=== PATIENT | female | born 1935 | race Caucasian/White ===

== ENCOUNTER 2021-02-05 15:33 | Inpatient (IN) | payer OTHER ==
[~2021-02-05] VITALS: Ht 162.6 cm; Wt 80.3 kg
--- NOTE | 2021-02-05 15:33 | NUR ---
PT [id number] [facility] C/O R HIP PAIN S/P GLF WHILE WALKING THE DOG. PT IS AAOX4, NOT IN RESPIRATORY DISTRESS, V/S STABLE, KEPT RESTED AND COMFORTABLE. WILL CONTINUE TO MONITOR.
--- NOTE | 2021-02-05 16:11 | NUR ---
SEEN AND EXAMINED BY .
[2021-02-05] MEDS ORDERED: ONDANSETRON HCL/PF 4 MG/2 ML VIAL ONE (16:15)
[2021-02-05] MEDS ORDERED: MORPHINE SULFATE INJ 2 MG/ML DISP.SYRIN ONE ×2 (16:15→19:08)
[2021-02-05] MEDS ORDERED: ONDANSETRON HCL/PF - ER 4 MG/2 ML VIAL IV ONE (16:30)
[2021-02-05] MEDS ORDERED: MORPHINE SULFATE INJ 2 MG/ML DISP.SYRIN IV ONE ×2 (16:30→19:00)
[2021-02-05 16:32] LABS: BASOPHILS # (AUTO) 0.3 K/uL (0.0-0.2); BASOPHILS % (AUTO) 2.7 % (0.0-2.0); EOSINOPHILS % (AUTO) 3.5 % (0.0-6.0); HEMATOCRIT 45 % (33-45); HEMOGLOBIN 14.5 g/dL (11.5-14.8); LYMPHOCYTES % (AUTO) 8.6 % (20.0-44.0); MEAN CORPUSCULAR HGB CONC 33 g/dl (31.0-36.0); MEAN CORPUSCULAR VOLUME 91 fL (82-100); MONOCYTES # (AUTO) 0.5 K/uL (0.1-1.30); MONOCYTES % (AUTO) 4.8 % (2.0-12.0); NEUTROPHILS # (AUTO) 9.1 K/uL (1.8-8.9); NEUTROPHILS % (AUTO) 80.4 % (43.0-81.0); PLATELET COUNT (AUTO) 269 K/uL (150-450); RED BLOOD CELL COUNT(AUTO) 4.91 MIL/uL (4.0-5.2); WHITE BLOOD COUNT (AUTO) 11.3 K/uL (4.3-11.0)
[2021-02-05 16:49] LABS: CALCIUM, SERUM 8.9 mg/dL (8.5-10.1); CREATININE 1.1 mg/dL (0.6-1.3); POTASSIUM 4.8 mmol/L (3.5-5.1)
--- NOTE | 2021-02-05 17:15 | NUR ---
PT IS WHEELED TO CT SCAN VIA [facility].
--- NOTE | 2021-02-05 18:04 | NUR ---
PT DAUGHTER ONDINA [phone]
--- NOTE | 2021-02-05 18:07 | NUR ---
CALLED ANDREA [phone] FOR READ. FEW MORE MINS.
--- NOTE | 2021-02-05 18:35 | NUR ---
CONTACTED ORTHO DR. FERNÁNDEZ TO CALL US BACK.
--- NOTE | 2021-02-05 18:52 | NUR ---
MOVE SHEET SUBMITTED.
--- NOTE | 2021-02-05 22:32 | NUR ---
m/s 326-1
--- NOTE | 2021-02-05 22:53 | NUR ---
REPORT GIVEN TO GOLD RN FOR GERHARD
[2021-02-05 23:00] VITALS: BP 163/86
--- NOTE | 2021-02-05 23:00 | NUR ---
MS RN ADMITTING NOTE PT TRANSPORTED BY [facility] TO UNIT FROM ER AT THIS TIME. RECEIVED REPORT FROM TRAE ENGEL @ED, A/OX 4. PT ABLE TO COMMUNICATE NEEDS. NO SOB NOTED, NO C/O PAIN AT THIS TIME, NO S/S OF ANY APPARENT DISTRESS NOTED. RESPIRATIONS EVEN AND UNLABORED, HYPERACTIVE BOWEL SOUNDS AUSCULTATED THROUGHOUT, ABDOMEN IS NON DISTENDED. SKIN IS INTACT, WARM TO TOUCH. CAPILLARY REFILL <3 SECONDS, PULSES PRESENT BILATERALLY, GOOD CIRCULATION NOTED. IV ACCESS NOTED IN L HAND G#20, INTACT, PATENT AND FLUSHING WELL. BELONGINGS NOTED AND KEPT AT BEDSIDE PER PT REQUEST. ASPIRATION AND SAFETY PRECAUTIONS IN PLACE AND MAINTAINED AT ALL TIMES. BED IN LOWEST LOCKED POSITION, SIDE RAILS UP X2, TABLE AND CALL LIGHT WITHIN REACH. WILL CONTINUE PLAN OF CARE.
[2021-02-06] VITALS: BP 163/86
[2021-02-06] MEDS ORDERED: ACETAMINOPHEN 325 MG TABLET PO PRN (03:00)
[2021-02-06] MEDS ORDERED: ZOLPIDEM TARTRATE 5 MG TABLET PO PRN (03:00)
[2021-02-06] MEDS ORDERED: Z GUARD REMEDY 2 OZ OINT TP PRN (03:00)
[2021-02-06] MEDS ORDERED: MAGNESIUM HYDROXIDE 30 ML UDC PO PRN (03:00)
[2021-02-06] MEDS ORDERED: ONDANSETRON HCL/PF 4 MG/2 ML VIAL IVP PRN (03:00)
[2021-02-06] MEDS: ENOXAPARIN SODIUM 40 MG/0.4 ML DISP.SYRIN SQ SCH (03:34)
[2021-02-06] MEDS: MORPHINE SULFATE INJ 2 MG/ML DISP.SYRIN IV PRN ×3 (03:36→21:19)
--- NOTE | 2021-02-06 03:36 | NUR ---
PT C/O PAIN OF 9/10 ON HER RIGHT HIP, VS WNL. MORPHINE 2MG/ML IV Q4HR PRN ADMINISTERED PER PT REQUEST. WILL CONTINUE TO MONITOR
[2021-02-06] MEDS: IV NS 0.9% 1,000 ML IV PRN ×2 (04:23→16:48)
[2021-02-06] MEDS: hydrALAZINE HCL IV 20 MG VIAL IV PRN (04:34)
--- NOTE | 2021-02-06 06:00 | NUR ---
MS RN CLOSING NOTE PT IS IN BED AWAKE. PT IS STABLE ON 2L NC , NO SOB NOTED. NO S/S OF RESPIRATORY DISTRESS. IV ACCESS IS INTACT, PATENT, AND FLUSHING WELL. . ALL NEEDS HAVE BEEN MET. ALL CARE, NEEDS, MEDICATIONS, AND TREATMENT ADMINISTERED ANTICIPATED PER ORDER. SAFETY, SEIZURE, AND ASPIRATION PRECAUTIONS MAINTAINED AT ALL TIMES. BED IN LOWEST LOCKED POSITION, HOB ELEVATED, SIDE RAILS UPX2. CALL LIGHT AND TABLE WITHIN REACH. WILL ENDORSE TO ONCOMING NURSE FOR GERHARD.
--- NOTE | 2021-02-06 07:22 | NUR ---
MS RN OPENING NOTES RECEIVED PATIENT RESTING IN BED. PATIENT IS A/O X4. PATIENT IS BREATHING EVENLY AND NONLABORED ON 2L VIA NASAL CANNULA. NO SIGNS OF DISTRESS NOTED. PATIENT DOES NOT COMPLAIN OF PAIN AT THIS TIME. PATIENT HAS IV ACCESS ON L HAND # 20 GAUGE RUNNING NS @ 60ML/HR, PATENT AND INTACT. SAFETY MEASURES ARE IN PLACE BED LOW, LOCKED CALL LIGHT WITHIN REACH. WILL CONTINUE TO MONITOR
[2021-02-06 09:25] VITALS: BP 158/87
--- NOTE | 2021-02-06 11:18 | NUR ---
RN NOTE PT C/O PAIN OF 9/10 ON HER RIGHT HIP, PATIENT ASKED FOR PRN PAIN MEDICATION. VS WNL. MORPHINE 2MG/ML IV Q4HR PRN ADMINISTERED PER ORDER. WILL CONTINUE TO MONITOR
[2021-02-06 16:16] VITALS: BP 162/62
--- NOTE | 2021-02-06 18:31 | NUR ---
MS RN CLOSING NOTE PT IS IN BED AWAKE. PATIENT IS A/O X4. PATIENT IS BREATHING EVENLY AND NONLABORED. PT IS STABLE ON 2L NC , NO SOB NOTED. NO S/S OF RESPIRATORY DISTRESS. IV ACCESS ON L HAND # 20 GAUGE IS INTACT, PATENT, AND FLUSHING WELL RUNNING NS @ 60 ML/HR. ALL NEEDS HAVE BEEN MET. ALL CARE, NEEDS, MEDICATIONS, AND TREATMENT ADMINISTERED. SAFETY, SEIZURE, AND ASPIRATION PRECAUTIONS MAINTAINED AT ALL TIMES. BED IN LOWEST LOCKED POSITION, HOB ELEVATED, SIDE RAILS UPX2. CALL LIGHT AND TABLE WITHIN REACH. WILL ENDORSE TO ONCOMING NURSE
--- NOTE | 2021-02-06 19:00 | NUR ---
RN NOTE RECEIVED PATIENT IN BED, AO X 4, IN NO S/SX OF ACUTE DISTRESS AT THIS TIME. BREATHING EVEN AND UNLABORED, SATURATION AT 95% ON , SR ON THE MONITOR, HR IS 98. NOTED IV SITE AT L HAND 20G, PATENT AND FLUSHING WELL, NO S/S OF INFECTION OR INFILTRATION, WITH IV FLUID OF NS INFUSING AT 60 ML/HR. MEDEROS CATHETER CONNECTED TO URINE BAG IN PLACE, DRAINING TO A CLEAR, YELLOW OUTPUT. BLE KEPT ELEVATED. SAFETY MEASURES IMPLEMENTED. PATIENT BED ALARM IS ON. HEAD OF BED ELEVATED. BED IS LOCKED, IN LOWEST POSITION AND SIDE RAILS UP. CALL LIGHT WITHIN REACH OF THE PATIENT. WILL CONTINUE TO MONITOR AND REASSESS FOR ANY CHANGES. Addendum: 02/07/21 at 0300 by BARRY MARTINEZ RN SATURATION AT 95% ON 2LPM VIA [place]
[2021-02-06 20:00] VITALS: BP 138/65
[2021-02-07] MEDS: ENOXAPARIN SODIUM 40 MG/0.4 ML DISP.SYRIN SQ SCH (02:29)
[2021-02-07] MEDS: MORPHINE SULFATE INJ 2 MG/ML DISP.SYRIN IV PRN ×4 (04:56→23:45)
[2021-02-07 06:51] LABS: BASOPHILS # (AUTO) 0.1 K/uL (0.0-0.2); BASOPHILS % (AUTO) 0.7 % (0.0-2.0); EOSINOPHILS % (AUTO) 2.3 % (0.0-6.0); HEMATOCRIT 41 % (33-45); HEMOGLOBIN 13.5 g/dL (11.5-14.8); LYMPHOCYTES # (AUTO) 1.8 K/uL (0.8-4.8); LYMPHOCYTES % (AUTO) 12.3 % (20.0-44.0); MEAN CORPUSCULAR HGB CONC 33 g/dl (31.0-36.0); MEAN CORPUSCULAR VOLUME 91 fL (82-100); MONOCYTES # (AUTO) 1.1 K/uL (0.1-1.30); MONOCYTES % (AUTO) 7.4 % (2.0-12.0); NEUTROPHILS # (AUTO) 11.2 K/uL (1.8-8.9); NEUTROPHILS % (AUTO) 77.3 % (43.0-81.0); PLATELET COUNT (AUTO) 196 K/uL (150-450); RED BLOOD CELL COUNT(AUTO) 4.53 MIL/uL (4.0-5.2); WHITE BLOOD COUNT (AUTO) 14.5 K/uL (4.3-11.0)
[2021-02-07 07:16] LABS: BILIRUBIN,TOTAL 0.8 mg/dL (0.2-1.0); CALCIUM, SERUM 8.1 mg/dL (8.5-10.1); MAGNESIUM 2.2 mg/dL (1.8-2.4); PHOSPHORUS 2.3 mg/dL (2.5-4.9)
--- NOTE | 2021-02-07 07:53 | NUR ---
RN OPENING NOTE PT AWAKE IN BED RESTING. ON 2L NC WITH SOB AND NO RESPIRATORY DISTRESS PRESENT. A/O X4 AND [place] SPEAKING. NO COMPLAINT OF PAIN OR NAUSEA PRESENT. NO FUR REPAIR INSPECTOR PRESENT. F/C PRESENT AND DRAINING WELL. ON BEDREST. SKIN IS INTACT. IV PRESENT ON L HAND 20G AND FLUSHES WELL. LABS AND ORDERS REVIEWED. SAFETY MEASURES IN PLACE. SIDE RAILS RAISED. BED LOWERED. CALL LIGHT WITHIN REACH. WILL CONTINUE TO MONITOR.
[2021-02-07 08:00] VITALS: BP 176/81
[2021-02-07] MEDS: HYDROCODONE/APAP 5/325MG TABLET PO PRN ×2 (12:11→21:44)
[2021-02-07] MEDS ORDERED: K PHOS NEUTRAL 250 MG TABLET PO ONE (15:30)
[2021-02-07 16:00] VITALS: BP 155/70
--- NOTE | 2021-02-07 18:27 | NUR ---
RN CLOSING NOTE PT AWAKE IN BED RESTING. ON 2L NC WITH SOB AND NO RESPIRATORY DISTRESS PRESENT. A/O X4 AND FAROESE SPEAKING. NO COMPLAINT OF PAIN OR NAUSEA PRESENT. NO OLIVER FILTER OPERATOR PRESENT. F/C PRESENT AND DRAINING WELL. ON BEDREST. SKIN IS INTACT. IV PRESENT ON L HAND 20G AND FLUSHES WELL. ROUTINE MEDS GIVEN. LABS AND ORDERS REVIEWED. SAFETY MEASURES IN PLACE. SIDE RAILS RAISED. BED LOWERED. CALL LIGHT WITHIN REACH. REPORT TO BE GIVEN TO NIGHT NURSE FOR GERHARD.
--- NOTE | 2021-02-07 19:12 | NUR ---
CONTINUITY OF CARE Patient in bed, supine position, reports no pain when not moving of touching her lower legs. Ongoing IVF. Chawla cath in place. Fall precaution maintained.
--- NOTE | 2021-02-07 19:34 | NUR ---
PAIN Patient in bed, unable to reposition in bed, limited movement BLE d/t hip and lower back pain. Pain 9/10 per patient, sharp and aching. IV morphine given, will reassess.
[2021-02-07 21:30] VITALS: BP 96/67
--- NOTE | 2021-02-07 21:44 | NUR ---
PAIN Patient in bed, refused to be turned and repositioned in bed, education given on possible skin pressure sore when not turning, declined education. Limited movement d/t omar lower ext d/t pain. Given [employer], will reassess.
--- NOTE | 2021-02-07 23:45 | NUR ---
PAIN Patient still refused to be turned and repositioned, reports no pain when not move or turned. Given IV morphine prior care, patient agreed.
[2021-02-08] MEDS: ENOXAPARIN SODIUM 40 MG/0.4 ML DISP.SYRIN SQ SCH (03:21)
--- NOTE | 2021-02-08 03:25 | NUR ---
ANTICOAGULANT H/H 13.5 Plt 196 No active bleeding. Given Lovenox injection co-signed by TRAE Malone
[2021-02-08] MEDS: IV NS 0.9% 1,000 ML IV PRN ×2 (03:28→23:33)
[2021-02-08] MEDS: HYDROCODONE/APAP 5/325MG TABLET PO PRN ×2 (03:30→23:45)
--- NOTE | 2021-02-08 03:32 | NUR ---
PAIN Patient in bed, c/o hip/lower back pain. Given [place] will reassess. Refused turning and repositioning.
--- NOTE | 2021-02-08 06:31 | NUR ---
END OF SHIFT REPORT Patient is A/O x3. On supplemental Oxygen via NC. Ongoing IVF. Right hip/lower back pain improved with Morphine and [place]. Patient uncooperative with turning, despite education. Skin precaution explained, offload heels at all times. No surgical intervention at this time per Ortho. NWB RLE. Plan for PT. Will endorse to oncoming RN to medicate patient for prior PT. Fall precaution maintained.
[2021-02-08 07:17] LABS: BASOPHILS # (AUTO) 0.1 K/uL (0.0-0.2); BASOPHILS % (AUTO) 0.6 % (0.0-2.0); EOSINOPHILS % (AUTO) 4.8 % (0.0-6.0); HEMATOCRIT 39 % (33-45); HEMOGLOBIN 12.9 g/dL (11.5-14.8); LYMPHOCYTES # (AUTO) 2.1 K/uL (0.8-4.8); LYMPHOCYTES % (AUTO) 17.7 % (20.0-44.0); MEAN CORPUSCULAR HGB CONC 33 g/dl (31.0-36.0); MEAN CORPUSCULAR VOLUME 90 fL (82-100); MONOCYTES # (AUTO) 1.1 K/uL (0.1-1.30); MONOCYTES % (AUTO) 9.7 % (2.0-12.0); NEUTROPHILS % (AUTO) 67.2 % (43.0-81.0); PLATELET COUNT (AUTO) 201 K/uL (150-450); RED BLOOD CELL COUNT(AUTO) 4.29 MIL/uL (4.0-5.2); WHITE BLOOD COUNT (AUTO) 11.8 K/uL (4.3-11.0)
[2021-02-08 07:43] LABS: ALBUMIN 2.6 g/dL (3.4-5.0); BILIRUBIN,TOTAL 0.7 mg/dL (0.2-1.0); CREATININE 0.9 mg/dL (0.6-1.3); MAGNESIUM 2.1 mg/dL (1.8-2.4); PHOSPHORUS 2.3 mg/dL (2.5-4.9); POTASSIUM 3.8 mmol/L (3.5-5.1); TOTAL PROTEIN, SERUM 6.5 g/dL (6.4-8.2)
--- NOTE | 2021-02-08 07:49 | NUR ---
RN OPENING NOTE PT AWAKE IN BED RESTING. ON 2L NC WITH SOB AND NO RESPIRATORY DISTRESS PRESENT. A/O X4 AND TURKISH SPEAKING. COMPLAINT OF PAIN WITH EPISODES OF CRYING. NO COMPLAINT OF NAUSEA PRESENT. NO SCREWDOWN OPERATOR PRESENT. F/C PRESENT AND DRAINING WELL. ON BEDREST. WOUND PRESENT ON R HEEL, WOUND PICTURES TAKEN AND WOUND CONSULT ORDERED. IV PRESENT ON L HAND 20G AND FLUSHES WELL. LABS AND ORDERS REVIEWED. SAFETY MEASURES IN PLACE. SIDE RAILS RAISED. BED LOWERED. CALL LIGHT WITHIN REACH. WILL CONTINUE TO MONITOR.
--- NOTE | 2021-02-08 07:50 | NUR ---
RN NOTE PT VERBALIZED THAT CURRENT DOSAGE OF MORPHINE IS INSUFFICIENT, MD CONTACTED. AWAITING ORDERS.
[2021-02-08 08:00] VITALS: BP 162/75
[2021-02-08] MEDS: MORPHINE SULFATE INJ 2 MG/ML DISP.SYRIN IV PRN ×2 (08:50→12:29)
--- NOTE | 2021-02-08 09:48 | NUR ---
WOUND CARE CONSULT: LIMITED ASSESSMENT DUE TO PT REFUSED TO TURN FOR FULL SKIN ASSESSMENT OF BACK AND BUTTOCKS. PT NOTED TO HAVE SKIN TEARS TO RT ARM, PRESENT ON ADMISSION. RECOMMENDATIONS MADE FOR SKIN PROTECTION AND WOUND CARE. DISCUSSED WITH NURSING STAFF. IN AGREEMENT WITH PLAN OF CARE. PT IS ON DAHLIA ISOFLEX LOW AIRLOSS BED. MD IN AGREEMENT WITH PLAN OF CARE.
[2021-02-08] MEDS ORDERED: K PHOS NEUTRAL 250 MG TABLET PO ONE (10:00)
[2021-02-08] MEDS ORDERED: MORPHINE SULFATE INJ 2 MG/ML DISP.SYRIN IV PRN (11:00)
--- NOTE | 2021-02-08 15:00 | NUR ---
RN NOTE PT HAS REFUSED ALL TURNING AND REPOSITIONING AND PT. EDUCATED PT ON RISKS AND BENEFITS OF REFUSING MOVEMENT AND REPOSITIONING. WILL CONTINUE TO MONITOR.
[2021-02-08 16:00] VITALS: BP 153/64
[2021-02-08] MEDS: GLUCERNA SHAKE 237 ML CAN PO SCH (17:56)
--- NOTE | 2021-02-08 17:57 | NUR ---
RN NOTE GLUCERNA ADMINISTERED TO PT WITH DINNER TRAY. PT THREW AWAY BOTTLE BEFORE SCANNED BY RN. PT IN STABLE CONDITION. WILL CONTINUE TO MONITOR.
--- NOTE | 2021-02-08 18:43 | NUR ---
RN CLOSING NOTE PT AWAKE IN BED RESTING. ON 2L NC WITH SOB AND NO RESPIRATORY DISTRESS PRESENT. A/O X4 AND ANGOLAN SPEAKING.NO COMPLAINT OF PAIN PRESENT. NO COMPLAINT OF NAUSEA PRESENT. NO CHEMIST ASSISTANT PRESENT. F/C PRESENT AND DRAINING WELL. ON BEDREST. WOUND PRESENT ON R HEEL, WOUND PICTURES TAKEN AND WOUND CONSULT ORDERED. IV PRESENT ON L HAND 20G AND FLUSHES WELL. LABS AND ORDERS REVIEWED. ROUTINE MEDS GIVEN. SAFETY MEASURES IN PLACE. SIDE RAILS RAISED. BED LOWERED. CALL LIGHT WITHIN REACH. WILL GIVE REPORT TO NIGHT NURSE FOR GERHARD.
--- NOTE | 2021-02-08 19:21 | NUR ---
MS RN NOTES PT AWAKE IN BED RESTING. ON 2L NC WITH SOB AND NO RESPIRATORY DISTRESS PRESENT. A/O X4 NO COMPLAINT OF PAIN PRESENT AT THIS TIME. . F/C NOTED AND DRAINING CLEAR YELLOW URINE WELL. ON BEDREST. WOUND NOTED ON R HEEL. IV PRESENT ON L HAND 20G AND FLUSHES WELL. SAFETY MEASURES IN PLACE. SIDE RAILS RAISED. BED LOWERED. CALL LIGHT WITHIN REACH. WILL CONTINUE TO MONITOR.
[2021-02-08 20:00] VITALS: BP 148/67
[2021-02-08 20:35] VITALS: BP 148/67
--- NOTE | 2021-02-08 23:48 | NUR ---
MS RN NOTES PT REPORTED 6/10 HIP PAIN ON A NUMERIC SCALE PRN NORCO GIVEN AND TOLERATED WELL.WILL CONTINUE TO MONITOR.
[2021-02-09] MEDS: ENOXAPARIN SODIUM 40 MG/0.4 ML DISP.SYRIN SQ SCH (02:13)
--- NOTE | 2021-02-09 06:30 | NUR ---
MS RN NOTES PT AWAKE IN BED RESTING. ON 2L NC WITH SOB AND NO RESPIRATORY DISTRESS PRESENT. A/O X4 NO COMPLAINT OF PAIN PRESENT AT THIS TIME. . F/C NOTED AND DRAINING CLEAR YELLOW URINE WELL. ON BEDREST.. IV PRESENT ON L HAND 20G AND FLUSHES WELL. PT REFUSED TO BE REPOSITIONED ALL NIGHT EVEN WITH PREMEDICATION PT STILL REFUSED X3 RISK AND BENEFITS EXPLAINED X3.SAFETY MEASURES IN PLACE. SIDE RAILS RAISED. BED LOWERED. CALL LIGHT WITHIN REACH. ALL DUE MEDS GIVEN AND TOLERATED WELL. ALL NURSING NEEDS MET .WILL ENDORSE CARE TO DAY SHIFT NURSE.
--- NOTE | 2021-02-09 07:31 | NUR ---
MS RN OPENING NOTES PATIENT AWAKE IN BED RESTING. ON 2L NC WITH NO SOB AND NO RESPIRATORY DISTRESS PRESENT. A/O X4. NO PAIN AT THIS TIME. F/C NOTED AND DRAINING CLEAR YELLOW URINE. IV PRESENT ON L HAND 20G AND PATENT AND INTACT. SIDE RAILS RAISED. BED LOWERED. CALL LIGHT WITHIN REACH. WILL CONTINUE TO MONITOR.
[2021-02-09 08:00] VITALS: BP 190/76
[2021-02-09] MEDS: GLUCERNA SHAKE 237 ML CAN PO SCH ×2 (08:38→16:07)
[2021-02-09] MEDS: HYDROCODONE/APAP 5/325MG TABLET PO PRN (09:25)
[2021-02-09] MEDS ORDERED: HYDROMORPHONE INJ 2 MG/ML DISP.SYRIN IV PRN (10:30)
[2021-02-09] MEDS: DOCUSATE SODIUM 250 MG CAPSULE PO SCH ×2 (11:18→16:07)
[2021-02-09 16:00] VITALS: BP 181/72
[2021-02-09] MEDS: IV NS 0.9% 1,000 ML IV PRN (16:32)
--- NOTE | 2021-02-09 18:03 | NUR ---
MS RN CLOSING NOTES PATIENT AWAKE IN BED RESTING. ON 2L NC WITH NO SOB AND NO RESPIRATORY DISTRESS PRESENT. A/O X4. NO PAIN AT THIS TIME. F/C NOTED AND DRAINING CLEAR YELLOW URINE. IV PRESENT ON L HAND 20G. IV IS PATENT AND INTACT. NORMAL SALINE RUNNING AT 60 ML/HOUR. SIDE RAILS RAISED. BED LOWERED. CALL LIGHT WITHIN REACH. WILL ENDORSE TO ONCOMING NURSE.
--- NOTE | 2021-02-09 19:00 | NUR ---
MS RN OPENING NOTES RECEIVE PT AWAKE IN BED AT THIS TIME. AOX 4. ABLE TO VERBALIZE NEEDS. NO S/O OF ANY ACUTE DISTRESS NOTED, DENIES PAIN AT THIS TIME. PT ON 2L OXYGEN VIA NC. IV ACCESS IN L HAND GAUGE 20 INTACT AND PATENT AND FLUSHING WELL . NS INFUSING NS AT 60ML/HR. SAFETY PRECAUTIONS IN PLACE AND MAINTAINED AT ALL TIMES. BED IN LOWEST LOCKED POSITION, HOB ELEVATED, SIDE RAILS UP X2, CALL LIGHT AND TABLE WITHIN REACH. WILL CONTINUE TO MONITOR
[2021-02-09 20:00] VITALS: BP 167/71
[2021-02-09] MEDS: hydrALAZINE HCL IV 20 MG VIAL IV PRN (20:34)
--- NOTE | 2021-02-09 20:34 | NUR ---
PATIENTS BP 167/71, HYDRALAZINE HCL 10MG (0.5ML) IV Q8HR PRN ADMINISTERED PER ORDER TO KEEP SBP <140.
[2021-02-10] MEDS: ENOXAPARIN SODIUM 40 MG/0.4 ML DISP.SYRIN SQ SCH (03:32)
--- NOTE | 2021-02-10 06:00 | NUR ---
MS RN CLOSING NOTE PT AWAKE AND RESTING IN BED COMFORTABLY AT THIS TIME. REMAINED STABLE THROUGHOUT SHIFT. ALL NEEDS, MEDICATIONS, CARE, AND PAIN CONTROL ADMINISTERED ANTICIPATED PER ORDER. PT REFUSED TO BE REPOSITIONED Q2HR AND PRN. IV ACCESS INTACT, PATENT AND FLUSHING. MEDEROS CATHETER IN PLACE AND DRAINING CLEAR, YELLOW URINE. SAFETY PRECAUTIONS IN LOWEST LOCKED POSITION, HOB ELEVATED, SIDE RAILS UP X2. CALL LIGHT AND TABLE WITHIN REACH. WILL ENDORSE TO DAY SHIFT NURSE FOR GERHARD.
--- NOTE | 2021-02-10 07:20 | NUR ---
MS RN OPENING NOTE RECEIVED PATIENT IN BED. ON 2L NC WITH NO SOB AND NO RESPIRATORY DISTRESS PRESENT. A/O X4. NO PAIN AT THIS TIME. MEDEROS CATHETER IN PLACE DRAINING YELLOW URINE. IV ACCESS ON L HAND 20 G, INTACT AND PATENT. SAFETY MEASURES MAINTAINED. BED IN LOWEST POSITION. BRAKES LOCKED. SIDE RAILS UP X2. CALL LIGHT WITHIN REACH. WILL CONTINUE PLAN OF CARE.
[2021-02-10 08:16] VITALS: BP 181/102
[2021-02-10] MEDS: hydrALAZINE HCL IV 20 MG VIAL IV PRN (08:16)
[2021-02-10] MEDS: DOCUSATE SODIUM 250 MG CAPSULE PO SCH (08:16)
--- NOTE | 2021-02-10 08:16 | NUR ---
RN NOTE BP 181/102 ID 84. HYDRALAZINE 0.5 ML PRN GIVEN. WILL CONTINUE TO MONITOR THROUGHOUT THE SHIFT.
[2021-02-10] MEDS: GLUCERNA SHAKE 237 ML CAN PO SCH (08:25)
[2021-02-10] MEDS ORDERED: OXYC-133 PO (09:36)
[2021-02-10] MEDS ORDERED: ENOX40DI SQ (09:42)
[2021-02-10] MEDS ORDERED: HYDR-3972 PO (09:42)
[2021-02-10] MEDS ORDERED: NIFE-34 PO (09:42)
[2021-02-10] MEDS ORDERED: DOCU250C14 PO (09:44)
--- NOTE | 2021-02-10 11:50 | NUR ---
RN NOTE GAVE REPORT TO TRAE DOWLING FROM [facility] ([facility]) CONTACT # [phone]
--- NOTE | 2021-02-10 13:55 | NUR ---
RN NOTE PATIENT DISCHARGED. WAS PICKED UP BY 2 EMT'S VIA [facility]. HEALTH TEACHING AND DISCHARGE INSTRUCTIONS GIVEN. PT VERBALIZED UNDERSTANDING. REMOVED IV ACCESS, ID WRISTBAND AND LEFT THE MEDEROS IN PLACE PER TRAE DOWLING FROM [facility]. WOUND PHOTO DOCS TAKEN. BELONGINGS GIVEN TO THE PATIENT.
== END 2021-02-10 13:45 | DRG 535 ==
LOC: ER 15:41 → MED 22:49
PROVIDERS: ADMIT Internal Medicine; ATTEND Internal Medicine
DX: S32.491A Other specified fracture of right acetabulum, initial encounter for closed fracture (principal); I21.4 Non-ST elevation (NSTEMI) myocardial infarction; S32.511A Fracture of superior rim of right pubis, initial encounter for closed fracture; S32.111A Minimally displaced Zone I fracture of sacrum, initial encounter for closed fracture; S32.591A Other specified fracture of right pubis, initial encounter for closed fracture; W01.0XXA Fall on same level from slipping, tripping and stumbling without subsequent striking against object, initial encounter; Y93.K1 Activity, walking an animal; Y92.410 Unspecified street and highway as the place of occurrence of the external cause; M79.7 Fibromyalgia; Z90.710 Acquired absence of both cervix and uterus; D72.829 Elevated white blood cell count, unspecified; M85.80 Other specified disorders of bone density and structure, unspecified site; Z20.822 Contact with and (suspected) exposure to COVID-19; R91.8 Other nonspecific abnormal finding of lung field
CPT/HCPCS: 36415; 71045-TC; 73502; 73700-TC; 80048-TC; 80053-TC; 80061-TC; 83735-TC; 84100-TC; 84484-TC; 85025-TC; 85730-TC; 87081-TC; 93307-TC; 97112-TC; 97530-TC; C9803; G0378; J0360; J1170; J1650; J2270; J2405; J7030

== ENCOUNTER 2021-06-28 12:23 | Inpatient (IN) | payer OTHER ==
[~2021-06-28] VITALS: Ht 162.6 cm; Wt 80.4 kg
[~2021-06-28 12:23] MED LIST: DOCU250C14 PO; ENOX40DI SQ; HYDR-3972 PO; NIFE-34 PO
--- NOTE | 2021-06-28 12:45 | NUR ---
PT [id number] [facility]M SENIOR CARE FOR R FOOT LAC/WOUND EVAL. OPEN WOUND TO R 2ND DIGIT TOE. PT A/OX3. TOLERATING R/A WELL WITH NO SOB. CONNECTED PT TO POX AND MONITOR.
--- NOTE | 2021-06-28 13:15 | NUR ---
WOUND CARE TO RIGHT FOOT DONE
--- NOTE | 2021-06-28 13:19 | NUR ---
PIPE COVERER HELPER AT PT'S BEDSIDE
--- NOTE | 2021-06-28 13:24 | NUR ---
CARDIAC CARE UNIT NURSE AT PT'S BEDSIDE
[2021-06-28] MEDS ORDERED: VANCOMYCIN 1 GM in IV D5W 250 ML IV ONE (13:30)
[2021-06-28] MEDS ORDERED: CEFEPIME 1 GM in IV D5W 50 ML IV ONE (13:30)
[2021-06-28 13:36] LABS: BASOPHILS # (AUTO) 0.1 K/uL (0.0-0.2); BASOPHILS % (AUTO) 0.8 % (0.0-2.0); EOSINOPHILS % (AUTO) 5.3 % (0.0-6.0); HEMATOCRIT 40 % (33-45); HEMOGLOBIN 13.3 g/dL (11.5-14.8); LYMPHOCYTES # (AUTO) 2.3 K/uL (0.8-4.8); LYMPHOCYTES % (AUTO) 21.1 % (20.0-44.0); MEAN CORPUSCULAR HGB CONC 33 g/dl (31.0-36.0); MEAN CORPUSCULAR VOLUME 92 fL (82-100); MONOCYTES # (AUTO) 0.7 K/uL (0.1-1.30); MONOCYTES % (AUTO) 6.8 % (2.0-12.0); NEUTROPHILS # (AUTO) 7.2 K/uL (1.8-8.9); PLATELET COUNT (AUTO) 401 K/uL (150-450); RED BLOOD CELL COUNT(AUTO) 4.35 MIL/uL (4.0-5.2); WHITE BLOOD COUNT (AUTO) 10.8 K/uL (4.3-11.0)
[2021-06-28] MEDS ORDERED: SERT50TA12 PO (13:39)
[2021-06-28] MEDS ORDERED: LEVO25TA9 PO (13:39)
[2021-06-28] MEDS ORDERED: GABA600T12 PO (13:39)
[2021-06-28] MEDS ORDERED: RIVA2.5T PO (13:39)
--- NOTE | 2021-06-28 13:51 | NUR ---
WALLPAPER PRINTER AT PT'S BEDSIDE
[2021-06-28 13:54] LABS: CALCIUM, SERUM 9.9 mg/dL (8.5-10.1); CARBON DIOXIDE 30 mmol/L (21-32); CHLORIDE 103 mmol/L (98-107); CREATININE 1.1 mg/dL (0.6-1.3); GLUCOSE 110 mg/dL (74-106); POTASSIUM 4.1 mmol/L (3.5-5.1); SODIUM SERUM 140 mmol/L (136-145); UREA NITROGEN, BLOOD 24 mg/dL (7-18)
[2021-06-28 14:00] LABS: ALANINE AMINOTRANSFERASE 18 U/L (12-78); ALBUMIN 3.4 g/dL (3.4-5.0); ALKALINE PHOSPHATASE 90 U/L (46-116); ASPARTATE AMINOTRANSFERASE 17 U/L (15-37); BILIRUBIN,DIRECT 0.1 mg/dL (0.0-0.2); BILIRUBIN,TOTAL 0.3 mg/dL (0.2-1.0); TOTAL PROTEIN, SERUM 7.9 g/dL (6.4-8.2)
[2021-06-28] MEDS ORDERED: IV NS 0.9% 1,000 ML BAG IV ONE (14:00)
--- NOTE | 2021-06-28 14:05 | NUR ---
COVID ANTIGEN AND PCR COLLECTED AND SENT TO LAB
[2021-06-28] MEDS ORDERED: HYDROCODONE/APAP 5/325MG TABLET PO PRN (17:30)
[2021-06-28] MEDS ORDERED: ZOLPIDEM TARTRATE 5 MG TABLET PO PRN (17:30)
[2021-06-28] MEDS ORDERED: MAG HYDROX/AL HYDROX/SIMETH 30 ML UDC PO PRN (17:30)
[2021-06-28] MEDS ORDERED: ACETAMINOPHEN 325 MG TABLET PO PRN (17:30)
[2021-06-28] MEDS ORDERED: ONDANSETRON HCL/PF 4 MG/2 ML VIAL IVP PRN (17:30)
[2021-06-28] MEDS ORDERED: MAGNESIUM HYDROXIDE 30 ML UDC PO PRN (17:30)
[2021-06-28] MEDS ORDERED: HYDROCODONE/APAP 10/325MG TABLET PO PRN (17:30)
[2021-06-28] MEDS ORDERED: Z GUARD REMEDY 2 OZ OINT TP PRN (17:30)
--- NOTE | 2021-06-28 19:30 | NUR ---
CALLED FOR ROOM
--- NOTE | 2021-06-28 21:08 | NUR ---
ADLS DONE. PT COMFORTABLE ALL NEEDS MET AT THIS TIME. SAFETY MEASURES IN PLACE
--- NOTE | 2021-06-28 22:02 | NUR ---
ASSIGNED TO [place] [id number]
--- NOTE | 2021-06-28 22:14 | NUR ---
REPORT GIVEN TO CAITLIN FOR GERHARD.
[2021-06-28 22:30] VITALS: BP 164/90
--- NOTE | 2021-06-28 22:30 | NUR ---
GIS SCIENTIST NOTES: 85 YEARS OLD FEMALE ADMITTED FROM ER UNDER SERVICE OF FIOR RODRIGEZ. DIAGNOSIS OF RT FOOT NON-HEALING WOUND. PATIENT ALERT, ORIENTED X4 AND VERBALLY RESPONSIVE. ON ROOM AIR O2 SAT 96%. NO SOB NOTED, NO CHEST CONGESTION, BREATHING EVEN AND UNLABORED. IV ACCESS ON RT HAND #22G INTACT AND PATENT. NO S/S OF INFILTRATIONS. BODY ASSESSMENT DONE. NOTED RT FOOT WOUND WITH SCANT AMOUNT OF BLEEDING. RT HEEL WITH DTI AND REDNESS ON SACRAL AREA. NO OTHER OPEN SKIN NOTED. SKIN WARM AND DRY TO TOUCH. ALL SAFETY MEASURE ON PLACE. BED IN LOW POSITION AND LOCKED. BOTH SIDE RAILS UP. PLACE CALL LIGHT WITH IN REACH. TALKED TO THE DAUGHTER FRANCESCO REGARDING HER MOM'S ARRIVAL. SHE MENTIONED, PT STILL ON FULL CODE STATUS. SHE GOT HER FIRST, 2ND AND BOOSTER COVID VACCINE AT [facility]. WILL CONTINUE TO MONITOR FOR ANY CHANGES.
--- NOTE | 2021-06-28 22:30 | NUR ---
MACHINE III COREMAKER NOTES: 85 YEARS FEMALE ADMITTED FROM ER. Addendum: 06/29/21 at 0023 by NISHA CARRILLO RN INCOMPLETE NOTES
--- NOTE | 2021-06-28 22:35 | NUR ---
PT TRANSFERRED TO [facility]. ALL BELONGINGS WITH PT.
[2021-06-29 04:00] VITALS: BP 177/99
--- NOTE | 2021-06-29 04:34 | NUR ---
RN NOTES: PATIENT C/O MODERATE PAIN 6/10 PAIN SCALE ON HER RT FOOT. SHARP PAIN. NO RESPIRATORY DISTRESS NOTED. WILL CONTINUE TO MONITOR
--- NOTE | 2021-06-29 04:37 | NUR ---
RN NO0TES: NORCO 5/325 GIVEN PRN AND PT TOLERATED WELL.
--- NOTE | 2021-06-29 06:40 | NUR ---
RN CLOSING NOTES: PATIENT IN BED AWAKE, ALERT, ORIENTED X3-4 AND VERBALLY RESPONSIVE. ON ROOM AIR. NO SOB, NO CHEST CONGESTION, BREATHING EVEN AND UNLABORED. IV ACCESS ON RT HAND #22G INTACT AND PATENT. NO S/S OF INFILTRATIONS. SKIN WARM AND DRY TO TOUCH. NO C/O PAIN OR DISCOMFORT. NO ACUTE DISTRESS. ALL SAFETY MEASURE ON PLACE. BED IN LOW POSITION AND LOCKED. BOTH SIDE RAILS UP. PLACE CALL LIGHT WITH IN REACH. WILL ENDORSE TO MORNING SHIFT NURSE.
[2021-06-29 07:26] LABS: BASOPHILS # (AUTO) 0.1 K/uL (0.0-0.2); BASOPHILS % (AUTO) 0.6 % (0.0-2.0); EOSINOPHILS % (AUTO) 5.1 % (0.0-6.0); HEMATOCRIT 36 % (33-45); HEMOGLOBIN 12.2 g/dL (11.5-14.8); LYMPHOCYTES # (AUTO) 1.8 K/uL (0.8-4.8); LYMPHOCYTES % (AUTO) 19.6 % (20.0-44.0); MEAN CORPUSCULAR HGB CONC 34 g/dl (31.0-36.0); MEAN CORPUSCULAR VOLUME 91 fL (82-100); MONOCYTES # (AUTO) 0.7 K/uL (0.1-1.30); NEUTROPHILS # (AUTO) 6.3 K/uL (1.8-8.9); NEUTROPHILS % (AUTO) 67.7 % (43.0-81.0); PLATELET COUNT (AUTO) 331 K/uL (150-450); RED BLOOD CELL COUNT(AUTO) 3.95 MIL/uL (4.0-5.2); WHITE BLOOD COUNT (AUTO) 9.4 K/uL (4.3-11.0)
--- NOTE | 2021-06-29 07:30 | NUR ---
RN OPENING NOTE PT IS ASLEEP IN BED, EASY TO AROUSE. ALERT AND ORIENTED X 3. PT ON ROOM AIR, TOLERATING WELL. NO S/SX OF DISTRESS, NO SOB. BREATHING IS EVEN AND UNLABORED. IV ACCESS RHAND#22 PATENT AND INTACT. SAFETY MEASURES IN PLACE WITH BED LOCKED AT LOW POSITION, SIDE RAILS UP X 2. CALL LIGHT IS WITHIN REACH. WILL CONTINUE TO MONITOR PATIENT THROUGHOUT SHIFT.
[2021-06-29 08:18] LABS: POTASSIUM 4.4 mmol/L (3.5-5.1)
[2021-06-29] MEDS: VANCOMYCIN 1 GM in IV D5W 250ml IV SCH (08:40)
[2021-06-29] MEDS: SERTRALINE HCL 50 MG TABLET PO SCH (08:52)
[2021-06-29] MEDS: LEVOTHYROXINE SODIUM 25 MCG TABLET PO SCH (08:52)
[2021-06-29] MEDS: GABAPENTIN 300 MG CAPSULE PO SCH ×3 (08:52→16:14)
[2021-06-29] MEDS: NIFEdipine XL (30MG) 30 MG TAB PO SCH (08:52)
[2021-06-29] MEDS: RIVAROXABAN 10 MG TABLET PO SCH ×2 (08:54→16:15)
[2021-06-29] MEDS ORDERED: hydrALAZINE HCL IV 20 MG VIAL IV PRN (10:30)
[2021-06-29 12:00] VITALS: BP 161/84
[2021-06-29] MEDS: CEFEPIME 2 GM in IV D5W 100 ML IV SCH (12:25)
[2021-06-29] MEDS ORDERED: CEFEPIME 1 GM in IV D5W 50 ML IV SCH (13:00)
--- NOTE | 2021-06-29 18:49 | NUR ---
RN CLOSING NOTE PT IS ASLEEP IN BED, EASY TO AROUSE. ON ROOM AIR, TOLERATING WELL. NO S/SX OF DISTRESS, NO SOB. BREATHING IS EVEN AND UNLABORED. ALL NEEDS MET THROUGHOUT SHIFT. PT KEPT COMFORTABLE AND DRY. IV ACCESS RHAND#22 PATENT AND INTACT. SAFETY MEASURES MAINTAINED WITH BED LOCKED AT LOW POSITION, SIDE RAILS UP X 2. CALL LIGHT IS WITHIN REACH. WILL ENDORSE CONTINUITY OF CARE TO ONCOMING SHIFT.
--- NOTE | 2021-06-29 19:35 | NUR ---
MS RN OPENING RECEIVED PATIENT IN BED, WITH EYES CLOSED BUT EASY TO AROUSE. A/OX2. NO S/S OF APPARENT DISTRESS. DENIES PAIN. NO FLUIDS RUNNING AT THIS TIME. SAFETY IN PLACE. WILL CONTINUE WITH PLAN OF CARE.
[2021-06-29 20:00] VITALS: BP 126/75
[2021-06-30] MEDS: VANCOMYCIN 1 GM in IV D5W 250ml IV SCH ×2 (01:00→20:51)
--- NOTE | 2021-06-30 07:21 | NUR ---
MS RN CLOSING NOTE PATIENT IN BED WITH EYES CLOSED. EASY TO AROUSE. A/OX2. NO S/S OF APPARENT DISTRESS ON ROOM AIR. NO C/O PAIN AT THIS TIME. ABLE TO MAKE NEEDS KNOWN. SCHEDULED MEDS ADMINISTERED. NEEDS ATTENDED. SAFETY IN PLACE. ENDORSED TO MORNING SHIFT RN FOR CONTINUITY OF CARE.
--- NOTE | 2021-06-30 07:26 | NUR ---
RN OPENING NOTE RECEIVED PATIENT RESTING IN BED, EASY TO AROUSE. ALERT AND ORIENTED X 3. PT ON ROOM AIR, TOLERATING WELL. NO S/SX OF DISTRESS, NO SOB. BREATHING IS EVEN AND UNLABORED. IV ACCESS R HAND#22 PATENT AND INTACT. SAFETY MEASURES IN PLACE WITH BED LOCKED AT LOW POSITION, SIDE RAILS UP X 2. CALL LIGHT IS WITHIN REACH. WILL CONTINUE TO MONITOR
[2021-06-30] MEDS: LEVOTHYROXINE SODIUM 25 MCG TABLET PO SCH (08:10)
[2021-06-30] MEDS: NIFEdipine XL (30MG) 30 MG TAB PO SCH (08:11)
[2021-06-30] MEDS: GABAPENTIN 300 MG CAPSULE PO SCH ×3 (08:11→16:02)
[2021-06-30] MEDS: SERTRALINE HCL 50 MG TABLET PO SCH (08:11)
[2021-06-30] MEDS: RIVAROXABAN 10 MG TABLET PO SCH ×2 (08:12→16:02)
[2021-06-30 08:35] VITALS: BP 132/76
[2021-06-30 09:22] LABS: CALCIUM, SERUM 9.1 mg/dL (8.5-10.1); CREATININE 1.1 mg/dL (0.6-1.3); POTASSIUM 3.8 mmol/L (3.5-5.1)
--- NOTE | 2021-06-30 11:11 | NUR ---
PER [facility] COVID NEGATIVE.
[2021-06-30] MEDS: CEFEPIME 2 GM in IV D5W 100 ML IV SCH (12:04)
[2021-06-30 16:11] VITALS: BP 126/81
--- NOTE | 2021-06-30 18:24 | NUR ---
MS RN CLOSING NOTE PATIENT RESTING IN BED, EASY TO AROUSE. ALERT AND ORIENTED X 3. PT ON ROOM AIR, TOLERATING WELL. NO S/SX OF DISTRESS, NO SOB. BREATHING IS EVEN AND UNLABORED. IV ACCESS R HAND#22 PATENT AND INTACT. WOUND CARE PERFORMED DURING SHIFT, ALL MEDICATIONS WERE GIVEN ORDERED. SAFETY MEASURES IN PLACE WITH BED LOCKED AT LOW POSITION, SIDE RAILS UP X 2. CALL LIGHT IS WITHIN REACH. WILL ENDORSE TO ONCOMING SHIFT
--- NOTE | 2021-06-30 19:00 | NUR ---
MS RN OPENING NOTE RECEIVED PT AWAKE IN BED. A/O X3. PT IS STABLE ON ROOM AIR, ABLE TO MAKE NEEDS KNOWN. PT IS BEDREST. NO SOB NOTED. NO S/S OF RESPIRATORY DISTRESS. NO C/O PAIN AT THIS TIME. IV ACCESS IN RIGHT HAND G # 22 SL. IV IS INTACT, PATENT, AND FLUSHING WELL. SAFETY MEASURES MAINTAINED AT ALL TIMES. BED IN LOWEST, LOCKED POSITION, HOB ELEVATED, SIDE RAILS UP X2. CALL LIGHT AND TABLE WITHIN REACH. WILL CONTINUE WITH PLAN OF CARE.
[2021-06-30 20:00] VITALS: BP 118/77
--- NOTE | 2021-07-01 06:30 | NUR ---
MS RN CLOSING NOTE PT IS IN BED , EASILY AROUSED. A/O X4, STABLE ON ROOM AIR, PT REMAINED STABLE THROUGHOUT SHIFT. ALL NEEDS, CARE, MEDICATIONS AND TREATMENT ADMINISTERED PER ORDER. WOUND CARE ADMINISTERED PER ORDER. IN ACCESS IS INTACT, PATENT AND FLUSHING WELL. PT REPOSITIONED Q 2H.SAFETY, SEIZURE, AND ASPIRATION PRECAUTIONS MAINTAINED AT ALL TIMES. BED IN LOWEST, LOCKED POSITION, HOB ELEVATED, SIDE RAILS UP X2. CALL LIGHT AND TABLE WITHIN REACH. WILL ENDORSE TO ONCOMING NURSE FOR GERHARD.
[2021-07-01 07:33] LABS: CALCIUM, SERUM 8.6 mg/dL (8.5-10.1); POTASSIUM 3.8 mmol/L (3.5-5.1)
--- NOTE | 2021-07-01 07:42 | NUR ---
RN OPENING NOTE- RECEIVED PT AWAKE IN BED. A/O X3. CONFUSED AND SLOW TO RESPOND, PT IS STABLE ON ROOM AIR, ABLE TO MAKE NEEDS KNOWN. PT IS BEDREST. NO SOB NOTED. NO S/S OF RESPIRATORY DISTRESS. NO C/O PAIN AT THIS TIME. IV ACCESS IN RIGHT HAND G # 22 SL. IV IS INTACT, SAFETY MEASURES MAINTAINED AT ALL TIMES. BED IN LOWEST, LOCKED POSITION, HOB ELEVATED, SIDE RAILS UP X2. CALL LIGHT AND TABLE WITHIN REACH. WILL CONTINUE WITH PLAN OF CARE.
[2021-07-01 08:00] VITALS: BP 132/83
--- NOTE | 2021-07-01 08:01 | NUR ---
WOUND CARE CONSULT: PT PRESENTS WITH DRY ESCHAR TO RT HEEL AND TOE WOUND, RASH TO BUTTOCKS, ALL PRESENT ON ADMISSION. RECOMMENDATIONS MADE FOR SKIN PROTECTION. DPM CONSULT CALLED TO DR MENDEZ. PT IS ON DAHLIA ISOFLEX LOW AIRLOSS BED. MD IN AGREEMENT WITH PLAN OF CARE.
[2021-07-01] MEDS: GABAPENTIN 300 MG CAPSULE PO SCH ×3 (08:08→16:46)
[2021-07-01] MEDS: NIFEdipine XL (30MG) 30 MG TAB PO SCH (08:09)
[2021-07-01] MEDS: SERTRALINE HCL 50 MG TABLET PO SCH (08:09)
[2021-07-01] MEDS: RIVAROXABAN 10 MG TABLET PO SCH ×2 (08:10→16:47)
[2021-07-01] MEDS: LEVOTHYROXINE SODIUM 25 MCG TABLET PO SCH (08:12)
[2021-07-01] MEDS: CLOTRIMAZOLE 1% 15 GM TUBE TP SCH ×2 (08:20→16:47)
--- NOTE | 2021-07-01 08:54 | NUR ---
RN NOTE- PT FOR CT ABD. CONSENT SIGNED.,. ROSINA LARKIN PLACED 20G TO LFT HAND. TOLERATED WELL.
[2021-07-01] MEDS: CEFEPIME 2 GM in IV D5W 100 ML IV SCH (12:13)
[2021-07-01] MEDS ORDERED: IOHEXOL-350 100 ML VIAL IV ONE (12:55)
[2021-07-01] MEDS ORDERED: IV NS 0.9% 250 ML IV ONE (12:55)
[2021-07-01] MEDS ORDERED: CT SWABBABLE VALVE TRANS SET 1 EA INFUS.SET MC ONE (12:55)
[2021-07-01] MEDS: VANCOMYCIN 1 GM in IV D5W 250ml IV SCH (14:38)
--- NOTE | 2021-07-01 14:42 | NUR ---
SS Consult: SS consult for wounds from assisted living. Pt. Is an 85-year-old female. Pt. does not remember how she got to the hospital. Pt. was oriented x3, alert, and cooperative. During interview, pt. was capable of following directions and made appropriate eye-contact. Pt.s speech was at a normal rate. Pt.s mood was elevated. SW explored pt.s hx of mental health and substance abuse. Pt. reported no hx of mental health, substance abuse, suicidal or homicidal. Pt. denies auditory hallucinations, visual hallucinations, paranoia, or delusions. SW explored pt.s living situation. Per pt., she lives at an assisted living, [facility] [[address] [place] [address]]. Per pt., she reports having adequate support from the assisted living. Pt. mentioned that everyone is supportive, including the caregivers. Per pt., she has been living there for about four years, and states that she enjoys it and feels safe. Pt. mentioned that her daughter Graham [tele:[phone]] is supportive. Per pt., her daughter visits often. Plan: SW provided available resources and pt. accepted. Once discharge, per pt., she would like to return to Assisted Living [[address] [facility] [place] [address] Resources Provided: ABUSE PREVENTION: ELDER ABUSE HOTLINE (02/02) ADULT PROTECTIVE SERVICES HOTLINE LONG-TERM CARE [facility] Region AREA ON AGING (HOTLINE) ADULT DAY HEALTH CARE CARE CENTERS: Private pay or Medi-audelia funded adult day care [place] Adult Day Health Care [facility] , [facility] Services , [facility] , [facility] Adult [facility] Care , [facility] Adult [facility] Care , [facility] Adult [facility] Center , [facility] , [facility] , [place] ALZHEIMERS DISEASE/DEMENTIA: Alzheimers Association Helpline [facility] Chapter www.alz.org/[facility] Department of Aging www.lacity.org Family Caregiver [place] www.caregiver.org [place] Caregiver Resources Center/Family Support www.[facility].org CANCER RESOURCES: [place] Cancer Society www.cancer.org Cancer Support Community www.CancerSupportVvsb.org: CancerCare www.cancercare.org [facility] Cancer Support Center www.[facility].org COMMUNITY HEALTH ASSOCIATIONS: AARP www.aarp.org ALS Association (ask for Luna) www.als.org Scottish Diabetes Association www.diabetes.org Scottish Heart Association www.heart.org Scottish Lung Association www.lungusa.org Scottish Parkinson Disease Association www.apdaparkinson.org [place] , www.redcross.org Arthritis Foundation www.arthritis.org Crohns & Colitis Foundation of Scottish www.ccfa.org/chapters/rayo National Multiple Sclerosis Society www.nationalmssociety.org Myasthenia Gravis Foundation www.myasthenia-ca.org National Stroke Association www.stroke.org CONSERVATORSHIP & GUARDIANSHIP: AARP Ailin Ayon Legal Services Center for Health Care Rights Eldercare Information and Referral Commercial Lines Assistant [facility] Emergency Department [facility]: [facility] Bar Referral Service [facility] Legal Services Office of the Public Guardian [place] EYESIGHT DISORDER RESOURCES: [place] Macular Degeneration Foundation [facility] www.[facility].org GRIEF AND BEREAVEMENT RESOURCES: The [place] , [facility] THE CONDE Connection , [facility] Bereavement Center , Ord HEARING DISORDER RESOURCES: [place] Telephone Access Program Deaf and Disabled Telecommunications Program www.ddtp.[facility].ca.gov HearRx Hearing Centers ([place]) Better Hearing Systems , Ord GLAD ([facility] Agency on Deafness) V/ TTY; Vice President Quality , [facility] Hearing [facility] Emergency Department -low income hearing aid assistance www.protestant deaconess hospitalringfoundation.org [place] Hearing Care , [place] HELP AT HOME CAREGIVER SUPPORT: In Home Support Services (Must have Medi-Audelia to be eligible) *Ask for a list of agencies that provide services to assist with care in the home. Local Senior Centers also have listings of care providers. HOME SAFETY MODIFICATIONS AND EQUIPMENT: Senior centers have additional referrals. [place] Housing and Community Investment Dept. Handyworker Program (low income) or Visit http://hcidla.summa health.org/upp-kbwnoy-zu for more information National Seating and Mobility and/or ; Forever Active www.foreveractivemed.com Stay Home Safe www.Stayhomesafe.com LIFE ALERT RESPONSE SYSTEM: Hubba Services 549-054-8899 www. World Wide Premium Packers Life Alert 439-358-1087 www.Outsell Life Station 749-779-5710 www.Catglobeation.Inktd Safe Return 238-276-8008 www.alz.or/safereturn Cell Phones for Seniors www.2heuresavant MEALS AND FOOD PROGRAMS: [place] Meals on Wheels [phone] [place] Meals on Wheels [phone] [facility] [phone] [place] to the Homebound [phone] [place] to the Homebound [phone] [facility] to the Homebound [phone] [facility] to the Homebound [phone] Edmund Valencia [phone] [facility] [phone] ONE Generation [phone] [facility] [phone] [facility] [phone] Meals on Wheels [phone] For all ages: $6.85/ meal w side. Delivered M-F from 10 am-1pm. Application and payment is done over the phone. Frozen meals available for weekends. Emergency Food [facility] [phone] [facility] Sociology Professor [phone] [facility] [phone] [facility]- Brown bag lunches [phone] [facility] [phone] MEAL/GROCERY DELIVERY PROGRAMS: Mehran [facility] Gourmet Meals [phone]- [facility] [phone]- [facility] Magic Kitchen [phone] Moms Meals [phone] (ask Pineda for Discount Select grocery stores may provide delivery. MEDICAL INSURANCE SUPPORT SERVICES: Center for Health Care Rights [phone] Health Insurance Counseling/Advocacy Programs (HICAP)-Must have Medicare. Offers counseling for Medi-Audelia eligibility [phone] Department of Public Sociology Professor [phone] www.[facility]ca.gov Medicare 021-263-0240 www.socialsecurity.org Social Security [phone] SENIOR ACTIVITY PROGRAMS: *Contact a local senior center, adult school, recreation facility or community [facility] for education, fitness, recreation, and social programs. Aquatic Therapy and Adapted Exercise programs through [facility] [phone] Encore at [facility] [phone]/encore U- Senior Friends [phone] [place] Senior Programs [phone] www.oasisnet.org Suddenly 65 www.ozyhhyhe29.Inktd SENIOR CENTERS: [facility] [phone] [facility] [place] [phone] [facility] [phone] [facility] Center [phone] [facility] [phone] [facility] [phone] [facility] [phone] [facility] [phone] [facility] [phone] [facility] [phone] [phone] [facility] [phone] [facility] [address] [phone] TRANSPORTATION: Local [facility] may have applications for transportation programs and additional resources. ACCESS Services [phone] Transportation for seniors and disabled persons 7 days a week requiring 254 hr. advance reservation. Must apply and register for program melchor eligible. CITY RIDE 770-330-8881 or [phone] Transportation for seniors and persons with ADA card/metro disabled card in the [facility]. M-F only. Must register for services. ONE GENERATION [phone] Serves 65 years + in conjunction with city ride program. Must be registered with both programs. A to B Transport [phone] Provides wheelchair/gurney van service. Adult Medical Transport [phone] Accepts [facility] with prior authorization. Care Van [phone] Provides wheelchair Transport. [facility] Wide Transportation [phone] Provides gurney service Gentle Care [phone] Gurney Transport. All Town Transportation [phone] wheelchair & gurney transport D Transportation [phone] wheelchair & gurney transport [place] Non-Emergency Transport [phone] wheelchair & gurney transport [facility] Center [phone] Short Term Transportation primarily for adults with disabilities on social security income. Nominal fee may apply and a reservation is required. [facility] Cab [phone] or [phone] [facility] [phone] [place] [address] Services -[phone] For additional programs & services VETERANS RESOURCES: Submissions for Aid and Attendance should be done directly to Federal VA office locatd at : [address] [address] X110 National Caregiver Support Line [phone] [facility] Veterans Services Field Office [phone] [place] Department of [place] Affairs [phone] Pension Information [phone]
[2021-07-01 16:00] VITALS: BP 135/70
--- NOTE | 2021-07-01 18:37 | NUR ---
RN CLOSING NOTE- PT AWAKE IN BED. A/O X3. , PT IS STABLE ON ROOM AIR, ABLE TO MAKE NEEDS KNOWN. PT IS BEDREST. NO SOB NOTED. NO S/S OF RESPIRATORY DISTRESS. NO C/O PAIN AT THIS TIME. IV ACCESS IN RIGHT HAND G # 22 SL. IV IS INTACT, IV SL 20G RAC, IV SL 20G LT HAND, DR GREEN TO SEE TOMORROW. SAFETY MEASURES MAINTAINED AT ALL TIMES. BED IN LOWEST, LOCKED POSITION, HOB ELEVATED, SIDE RAILS UP X2. CALL LIGHT AND TABLE WITHIN REACH. WILL CONTINUE WITH PLAN OF CARE.
--- NOTE | 2021-07-01 19:16 | NUR ---
MS RN OPENING NOTES RECEIVED PATIENT AWAKE IN BED. A/O X3. PT IS STABLE ON ROOM AIR. NO SOB OR S/S OF RESPIRATORY DISTRESS NOTED. NO C/O PAIN AT THIS TIME. IV ACCESS IN RIGHT HAND G # 22 SL, IV SL 20G RAC, IV SL 20G LT HAND, ALL INTACT AND PATENT. SAFETY PRECAUTIONS IN PLACE; BED IN LOWEST LOCKED POSITION, HOB ELEVATED, SIDE RAILS UP X2, CALL LIGHT AND TABLE WITHIN REACH. WILL CONTINUE WITH PLAN OF CARE.
[2021-07-01 20:00] VITALS: BP 116/59
--- NOTE | 2021-07-02 06:34 | NUR ---
MS RN CLOSING NOTES PATIENT AWAKE IN BED. A/O X3. PT IS STABLE ON ROOM AIR. NO SOB OR S/S OF RESPIRATORY DISTRESS NOTED. NO C/O PAIN AT THIS TIME. IV ACCESS IN RIGHT HAND G # 22 SL, IV SL 20G RAC, IV SL 20G LT HAND, ALL INTACT AND PATENT. ALL NEEDS MET AT THIS TIME. SAFETY PRECAUTIONS IN PLACE AT ALL TIMES; BED IN LOWEST LOCKED POSITION, HOB ELEVATED, SIDE RAILS UP X2, CALL LIGHT AND TABLE WITHIN REACH. WILL ENDORSE TO ONCOMING NURSE FOR GERHARD.
[2021-07-02 07:28] LABS: CALCIUM, SERUM 8.7 mg/dL (8.5-10.1); POTASSIUM 4.2 mmol/L (3.5-5.1)
--- NOTE | 2021-07-02 07:30 | NUR ---
RN MS NOTES PT IN BED, ASLEEP, EASY TO AROUSE, ALERT AND VERBALLY RESPONSIVE, NO COMPLAINT OF PAIN OR ANY DISCOMFORT AT THIS TIME, RESPIRATIONS NORMAL, CALL LIGHT WITHIN REACH.
[2021-07-02 08:00] VITALS: BP 114/56
[2021-07-02] MEDS: NIFEdipine XL (30MG) 30 MG TAB PO SCH (08:29)
[2021-07-02] MEDS: SERTRALINE HCL 50 MG TABLET PO SCH (08:30)
[2021-07-02] MEDS: LEVOTHYROXINE SODIUM 25 MCG TABLET PO SCH (08:30)
[2021-07-02] MEDS: GABAPENTIN 300 MG CAPSULE PO SCH ×3 (08:30→16:13)
[2021-07-02] MEDS: CLOTRIMAZOLE 1% 15 GM TUBE TP SCH ×2 (08:33→16:14)
[2021-07-02] MEDS: RIVAROXABAN 10 MG TABLET PO SCH ×2 (08:34→16:13)
[2021-07-02] MEDS: VANCOMYCIN 1 GM in IV D5W 250ml IV SCH (10:43)
[2021-07-02 16:00] VITALS: BP 133/70
--- NOTE | 2021-07-02 18:16 | NUR ---
RN MS NOTES PT IN BED, AWAKE, ALERT AND ORIENTED, NO COMPLAINT OF PAIN, NOT IN DISTRESS, CALL LIGHT WITHIN REACH, PM MEDS GIVEN ORDERED, ASSISTED WITH REPOSITIONING, NOTED WITH GOOD PO INTAKE, SEEN BY DR. JOHNSON TODAY.
--- NOTE | 2021-07-02 18:48 | NUR ---
RN MS NOTES PT SEEN AND EXAMINED BY DR. GREEN, PLAN FOR ANGIOGRAM DISCUSSED WITH PT AND DAUGHTER FRANCESCO OVER THE PHONE, PATIENT AND DAUGHTER VERBALIZED UNDERSTANDING OF THE PROCEDURE.
--- NOTE | 2021-07-02 19:50 | NUR ---
MS RN OPENING NOTE PATIENT AWAKE IN BED, ALERT/ORIENTED X 3, PT ABLE TO MAKE NEEDS KNOWN. PATIENT STABLE ON RA, NO S/S OF DISTRESS OR SOB NOTED, BREATHING EVEN AND UNLABORED. PT DENIES PAIN OR DISCOMFORT AT THIS TIME. IV ACCESS ON RIGHT AC #20G, RIGHT WRIST #22G AND LEFT HAND #20G INTACT AND SALINE LOCKED. CONSENT FOR ANGIOGRAM SIGNED. SAFETY MEASURES IN PLACE: CALL LIGHT WITHIN REACH, SIDE RAILS UP X 2, BED LOCKED IN LOW POSITION, HOB ELEVATED, BED ALARM ON. WILL CONTINUE TO MONITOR PATIENT
[2021-07-02 20:17] VITALS: BP 119/61
[2021-07-03] MEDS ORDERED: VANCOMYCIN 1 GM VIAL ONE (04:43)
[2021-07-03] MEDS: VANCOMYCIN 1 GM in IV D5W 250ml IV SCH ×2 (04:48→22:53)
--- NOTE | 2021-07-03 07:02 | NUR ---
MS RN CLOSING NOTE PATIENT SLEEPING IN BED, ALERT/ORIENTED X 3, PT ABLE TO MAKE NEEDS KNOWN. PATIENT STABLE ON RA, NO S/S OF DISTRESS OR SOB NOTED, BREATHING EVEN AND UNLABORED. DRESSING ON RIGHT FOOT CLEAN, DRY AND INTACT. MEDICATIONS GIVEN ORDERED, PT NEEDS MET THROUGHOUT SHIFT. SAFETY MEASURES IN PLACE: CALL LIGHT WITHIN REACH, SIDE RAILS UP X 2, BED LOCKED IN LOW POSITION, HOB ELEVATED, BED ALARM ON. WILL ENDORSE TO DAY SHIFT NURSE FOR CONTINUITY OF CARE
[2021-07-03 07:25] LABS: POTASSIUM 4.3 mmol/L (3.5-5.1)
--- NOTE | 2021-07-03 07:54 | NUR ---
RN note Patient received in bed, AO x 3, able to responds all stimuli. Skin is warm to touch, keep clean/dry. Patient does no c/o pain or discomfort at this time. Respiratory even and unlabored on room air, no SOB observed. Call light within reach, kept elevated HOB and lower bed position for safety. Will continue to monitor.
[2021-07-03 08:24] VITALS: BP 144/79
[2021-07-03] MEDS: GABAPENTIN 300 MG CAPSULE PO SCH ×3 (08:37→18:41)
[2021-07-03] MEDS: LEVOTHYROXINE SODIUM 25 MCG TABLET PO SCH (08:37)
[2021-07-03] MEDS: SERTRALINE HCL 50 MG TABLET PO SCH (08:37)
[2021-07-03] MEDS: NIFEdipine XL (30MG) 30 MG TAB PO SCH (08:37)
[2021-07-03] MEDS: RIVAROXABAN 10 MG TABLET PO SCH ×2 (08:39→18:43)
[2021-07-03] MEDS: CLOTRIMAZOLE 1% 15 GM TUBE TP SCH ×2 (09:00→18:53)
[2021-07-03 16:27] VITALS: BP 130/73
--- NOTE | 2021-07-03 17:03 | NUR ---
Patient left to booster pump oiler. in stable condition.
[2021-07-03] MEDS ORDERED: LIDOCAINE HCL/MPF 1% 30 ML VIAL IJ ONE (17:05)
[2021-07-03] MEDS ORDERED: MIDAZOLAM HCL 2 MG/2ML VIAL ONE (17:06)
[2021-07-03] MEDS ORDERED: FENTANYL PF 100MCG/2ML AMPUL ONE (17:06)
[2021-07-03] MEDS ORDERED: IODIXANOL 150 ML IV ONE (17:12)
--- NOTE | 2021-07-03 18:25 | NUR ---
RN Closing Note Patient back from clinical product manager, accompanied by three staffs with bed, remains AO x 4. Respiratory even and unabashed on room air. Denies pain or discomfort. Skin is warm to touch, keep clean/dry, intact. Kept elevated HOB for airway and lower position of the bed for safety. Stable vital sign and documented.Call light within reach, all needs met. will endorse night shift supervisor.
[2021-07-03 18:33] VITALS: BP 120/74
--- NOTE | 2021-07-03 19:45 | NUR ---
MS RN OPENING NOTE PATIENT AWAKE IN BED, ALERT/ORIENTED X 3, PT ABLE TO MAKE NEEDS KNOWN. PATIENT STABLE ON RA, NO S/S OF DISTRESS OR SOB NOTED, BREATHING EVEN AND UNLABORED. PT DENIES PAIN OR DISCOMFORT AT THIS TIME. IV ACCESS ON LEFT FOREARM #20G AND LEFT HAND #20G INTACT AND SALINE LOCKED. PT S/P CARPET JACK, PER DAY SHIFT NURSE KEEP LEGS STRAIGHT UNTIL 10:30 PM. SAFETY MEASURES IN PLACE: CALL LIGHT WITHIN REACH, SIDE RAILS UP X 2, BED LOCKED IN LOW POSITION, HOB ELEVATED, BED ALARM ON. WILL CONTINUE TO MONITOR PATIENT
[2021-07-03 20:00] VITALS: BP 143/66
[2021-07-03] MEDS: METOPROLOL TARTRATE 50 MG TABLET PO SCH (20:56)
--- NOTE | 2021-07-03 21:00 | NUR ---
MS RN NOTE DR. JER JOHNSON CALLED REGARDING PATIENT'S ELEVATED BP AND HR. STATED HE WILL PLACE ORDER FOR EKG AND METROPOLOL 50 MG PO TO GIVE NOW
[2021-07-03 22:30] VITALS: BP 120/73
--- NOTE | 2021-07-03 22:35 | NUR ---
MS RN NOTE CONTACTED DR. JOHNSON WITH EKG RESULTS AND RECENT REASSESSMENT OF VITALS BP 120/73, HR: 108. NO NEW ORDERS AT THIS TIME
--- NOTE | 2021-07-04 07:36 | NUR ---
RN Note Patient received in bed, AO x 3, able to responds all stimuli. Respiratory even and unlabored on room air, no SOB observed. Skin is warm to touch, keep clean/dry. Patient denies pain or discomfort at this morning. Patient able to reposition self. Call light within reach, kept elevated HOB and lower bed position for safety. Will continue to monitor.
[2021-07-04 07:53] LABS: BASOPHILS % (AUTO) 0.4 % (0.0-2.0); EOSINOPHILS % (AUTO) 6.3 % (0.0-6.0); HEMATOCRIT 37 % (33-45); HEMOGLOBIN 11.9 g/dL (11.5-14.8); LYMPHOCYTES # (AUTO) 2.4 K/uL (0.8-4.8); LYMPHOCYTES % (AUTO) 23.9 % (20.0-44.0); MEAN CORPUSCULAR HGB CONC 33 g/dl (31.0-36.0); MEAN CORPUSCULAR VOLUME 93 fL (82-100); MONOCYTES # (AUTO) 0.9 K/uL (0.1-1.30); MONOCYTES % (AUTO) 8.8 % (2.0-12.0); NEUTROPHILS # (AUTO) 6.1 K/uL (1.8-8.9); NEUTROPHILS % (AUTO) 60.6 % (43.0-81.0); PLATELET COUNT (AUTO) 298 K/uL (150-450); RED BLOOD CELL COUNT(AUTO) 3.94 MIL/uL (4.0-5.2); WHITE BLOOD COUNT (AUTO) 10.1 K/uL (4.3-11.0)
[2021-07-04 08:09] LABS: CALCIUM, SERUM 9.2 mg/dL (8.5-10.1); CREATININE 0.9 mg/dL (0.6-1.3); MAGNESIUM 2.2 mg/dL (1.8-2.4); PHOSPHORUS 3.6 mg/dL (2.5-4.9); POTASSIUM 4.2 mmol/L (3.5-5.1)
[2021-07-04] MEDS: SERTRALINE HCL 50 MG TABLET PO SCH (08:11)
[2021-07-04] MEDS: LEVOTHYROXINE SODIUM 25 MCG TABLET PO SCH (08:11)
[2021-07-04] MEDS: NIFEdipine XL (30MG) 30 MG TAB PO SCH (08:11)
[2021-07-04] MEDS: GABAPENTIN 300 MG CAPSULE PO SCH ×3 (08:11→16:26)
[2021-07-04] MEDS: METOPROLOL TARTRATE 50 MG TABLET PO SCH (08:12)
[2021-07-04] MEDS: RIVAROXABAN 10 MG TABLET PO SCH ×2 (08:13→16:27)
[2021-07-04] MEDS: CLOTRIMAZOLE 1% 15 GM TUBE TP SCH ×2 (08:20→16:30)
[2021-07-04 08:26] VITALS: BP 131/83
--- NOTE | 2021-07-04 12:00 | NUR ---
Patient failed ST noemíal today, new order NG tube. Conformed NG tube placement by chest xray. Patient has on left nare 16 fr. Kept elevated HOB for aspiration precaution. Will continue to monitor closely. Addendum: 07/04/21 at 1754 by KHURRAM JTEER RN error
[2021-07-04 16:23] VITALS: BP 128/61
[2021-07-04] MEDS: VANCOMYCIN 1 GM in IV D5W 250ml IV SCH (16:26)
--- NOTE | 2021-07-04 17:51 | NUR ---
RN Closing Note Patient in bed and resting, remains AO x 3. Respiratory even and unabashed on room air. Denies pain or discomfort. Skin is warm to touch, keep clean/dry, intact. Dressing change on right foot. Kept elevated HOB for airway and lower position of the bed for safety. Call light within reach, all needs met. will endorse oxygen equipment preparer.
--- NOTE | 2021-07-04 18:30 | NUR ---
Patient done EKG informed MD result and teletypesetter monitor, received order amiodarone at 1900. ANGÉLICA nurse will come and initiate Amiodarone drip. Cardiac MD aware of the patient condition. Patient denies pain or discomfort of chest. Respiratory even and unlabored on room air. Oxygen saturate 94 %. Endorsed cage shift manager, will continue to monitor closely.
[2021-07-04] MEDS ORDERED: AMIODARONE 150 MG in IV D5W 100 ML IV ONE (19:00)
[2021-07-04 19:29] LABS: THYROID STIMULATING HORMONE 4.517 uIU/mL (0.358-3.74)
[2021-07-04 20:00] VITALS: BP 139/64
[2021-07-04] MEDS: AMIODARONE 450 MG in IV D5W 241 ML IV PRN (20:14)
[2021-07-05] VITALS: BP 129/74
[2021-07-05] MEDS: AMIODARONE 450 MG in IV D5W 241 ML IV PRN ×2 (02:13→16:20)
[2021-07-05 04:00] VITALS: BP 121/66
--- NOTE | 2021-07-05 06:34 | NUR ---
GREIGE GOODS INSPECTOR NOTES AWAKE & RESPONSIVE. NOT IN ANY DISTRESS. NO SOB NOTED. DENIES ANY PAIN OR DISCOMFORT AT THIS TIME. ON TELE ST @ 107 WITH PVCS WITH AMIODARONE DRIP INFUSING WELL. AM CARE DONE. MONITORED ACCORDINGLY. CALL LIGHT WITHIN REACH. BED IN LOWEST POSITION. SR UP X 2 FOR SAFETY. WILL ENDORSE TO NEXT SHIFT.
--- NOTE | 2021-07-05 07:50 | NUR ---
RN OPENING NOTE PATIENT AWAKE IN BED, ALERT/ORIENTED X 2, PT ABLE TO MAKE NEEDS KNOWN. NO S/S OF DISTRESS OR SOB NOTED, BREATHING EVEN AND UNLABORED. PT DENIES PAIN OR DISCOMFORT AT THIS TIME. IV ACCESS ON LEFT FOREARM #20G AND LEFT HAND #20G INTACT RUNNING AMIODARONE 0.5MG/MIN STARTED AT 0215.SAFETY MEASURES IN PLACE: CALL LIGHT WITHIN REACH, SIDE RAILS UP X 2, BED LOCKED IN LOW POSITION, HOB ELEVATED, BED ALARM ON.
[2021-07-05 08:38] LABS: BASOPHILS # (AUTO) 0.1 K/uL (0.0-0.2); BASOPHILS % (AUTO) 0.6 % (0.0-2.0); CALCIUM, SERUM 9.4 mg/dL (8.5-10.1); HEMATOCRIT 36 % (33-45); LYMPHOCYTES # (AUTO) 2.6 K/uL (0.8-4.8); LYMPHOCYTES % (AUTO) 26.5 % (20.0-44.0); MAGNESIUM 2.2 mg/dL (1.8-2.4); MEAN CORPUSCULAR HGB CONC 34 g/dl (31.0-36.0); MEAN CORPUSCULAR VOLUME 91 fL (82-100); MONOCYTES # (AUTO) 0.8 K/uL (0.1-1.30); MONOCYTES % (AUTO) 8.5 % (2.0-12.0); NEUTROPHILS # (AUTO) 5.5 K/uL (1.8-8.9); NEUTROPHILS % (AUTO) 57.4 % (43.0-81.0); PHOSPHORUS 4.2 mg/dL (2.5-4.9); PLATELET COUNT (AUTO) 294 K/uL (150-450); POTASSIUM 4.1 mmol/L (3.5-5.1); RED BLOOD CELL COUNT(AUTO) 3.92 MIL/uL (4.0-5.2); WHITE BLOOD COUNT (AUTO) 9.7 K/uL (4.3-11.0)
[2021-07-05] MEDS: RIVAROXABAN 10 MG TABLET PO SCH ×2 (08:43→17:15)
[2021-07-05] MEDS: SERTRALINE HCL 50 MG TABLET PO SCH (08:44)
[2021-07-05] MEDS: LEVOTHYROXINE SODIUM 25 MCG TABLET PO SCH (08:44)
[2021-07-05] MEDS: GABAPENTIN 300 MG CAPSULE PO SCH ×3 (08:45→17:15)
[2021-07-05] MEDS: NIFEdipine XL (30MG) 30 MG TAB PO SCH (08:45)
[2021-07-05] MEDS: CLOTRIMAZOLE 1% 15 GM TUBE TP SCH ×2 (08:51→17:15)
[2021-07-05 09:48] VITALS: BP 132/52
[2021-07-05] MEDS: VANCOMYCIN 1 GM in IV D5W 250ml IV SCH (10:19)
[2021-07-05 10:21] VITALS: BP 132/52
--- NOTE | 2021-07-05 13:20 | NUR ---
RT NOTE PT REFUSED EKG AT THIS TIME. TRAE OAKLEY.
--- NOTE | 2021-07-05 13:36 | NUR ---
RN NOTE PROVIDER NOTIFIED OF PATIENT REFUSING EKG.
--- NOTE | 2021-07-05 18:53 | NUR ---
RN OPENING NOTE 328 PATIENT AWAKE IN BED, ALERT/ORIENTED X 4, PT ABLE TO MAKE NEEDS KNOWN. NO S/S OF DISTRESS OR SOB NOTED, BREATHING EVEN AND UNLABORED. PT DENIES PAIN OR DISCOMFORT AT THIS TIME. IV ACCESS ON LEFT FOREARM #20G AND LEFT HAND #20G INTACT RUNNING AMIODARONE 0.5MG/MIN STARTED AT 0215.SAFETY MEASURES IN PLACE: CALL LIGHT WITHIN REACH, SIDE RAILS UP X 2, BED LOCKED IN LOW POSITION, HOB ELEVATED, BED ALARM O. WILL ENDORSE TO NIGHT NURSE FOR GERHARD.
[2021-07-05 20:00] VITALS: BP 135/62
[2021-07-06] VITALS: BP 138/69
--- NOTE | 2021-07-06 | NUR ---
WATER SUPERVISOR NOTES PT CONVERTED TO SR @ 67. PT NOT IN ANY DISTRESS. NO SOB NOTED. DENIES ANY CP OR ANY DISCOMFORT AT THIS TIME. WILL CONTINUE TO MONITOR.
[2021-07-06 04:00] VITALS: BP 132/61
[2021-07-06] MEDS: VANCOMYCIN 1 GM in IV D5W 250ml IV SCH ×2 (04:45→21:50)
--- NOTE | 2021-07-06 07:00 | NUR ---
RUG WEAVER NOTE AWAKE & RESPONSIVE. NOT IN ANY DISTRESS. NO SOB NOTED. DENIES ANY PAIN OR DISCOMFORT AT THIS TIME. ON TELE SR @ 68 WITH IV-HL PATENT & INTACT. AM CARE DONE. MONITORED ACCORDINGLY. CALL LIGHT WITHIN REACH. BED IN LOWEST POSITION. SR UP X 3 WITH BED ALARM ON FOR SAFETY. WILL ENDORSE TO NEXT SHIFT.
--- NOTE | 2021-07-06 07:30 | NUR ---
MAMMAL KEEPER NOTES PT IN BED, AWAKE, ALERT AND ORIENTED, NO COMPLAINT OF PAIN OR ANY DISCOMFORT, BREATHING PATTERN NORMAL, CALL LIGHT WITHIN REACH, KEPT WARM AND COMFORTABLE IN BED.
[2021-07-06 08:00] VITALS: BP 161/63
[2021-07-06] MEDS: LEVOTHYROXINE SODIUM 25 MCG TABLET PO SCH (08:36)
[2021-07-06] MEDS: GABAPENTIN 300 MG CAPSULE PO SCH ×3 (08:37→16:46)
[2021-07-06] MEDS: SERTRALINE HCL 50 MG TABLET PO SCH (08:37)
[2021-07-06] MEDS: NIFEdipine XL (30MG) 30 MG TAB PO SCH (08:37)
[2021-07-06] MEDS: RIVAROXABAN 10 MG TABLET PO SCH ×2 (08:39→16:46)
[2021-07-06] MEDS: CLOTRIMAZOLE 1% 15 GM TUBE TP SCH ×2 (08:48→17:33)
[2021-07-06 13:07] LABS: BASOPHILS # (AUTO) 0.1 K/uL (0.0-0.2); BASOPHILS % (AUTO) 0.6 % (0.0-2.0); EOSINOPHILS % (AUTO) 5.2 % (0.0-6.0); HEMATOCRIT 38 % (33-45); HEMOGLOBIN 12.3 g/dL (11.5-14.8); LYMPHOCYTES # (AUTO) 2.2 K/uL (0.8-4.8); LYMPHOCYTES % (AUTO) 18.6 % (20.0-44.0); MEAN CORPUSCULAR HGB CONC 32 g/dl (31.0-36.0); MEAN CORPUSCULAR VOLUME 93 fL (82-100); MONOCYTES # (AUTO) 1.1 K/uL (0.1-1.30); MONOCYTES % (AUTO) 9.8 % (2.0-12.0); NEUTROPHILS # (AUTO) 7.6 K/uL (1.8-8.9); NEUTROPHILS % (AUTO) 65.8 % (43.0-81.0); PLATELET COUNT (AUTO) 274 K/uL (150-450); RED BLOOD CELL COUNT(AUTO) 4.07 MIL/uL (4.0-5.2); WHITE BLOOD COUNT (AUTO) 11.6 K/uL (4.3-11.0)
[2021-07-06 14:14] LABS: CALCIUM, SERUM 8.5 mg/dL (8.5-10.1); CREATININE 1.2 mg/dL (0.6-1.3); MAGNESIUM 2.1 mg/dL (1.8-2.4); PHOSPHORUS 4.1 mg/dL (2.5-4.9); POTASSIUM 3.8 mmol/L (3.5-5.1)
[2021-07-06 16:00] VITALS: BP 135/55
--- NOTE | 2021-07-06 18:25 | NUR ---
VETERANS ADVISER NOTES PT IN BED, AWAKE, ALERT AND ORIENTED, WATCHING TV, DENIES PAIN, BREATHING PATTERN NORMAL, ASSISTED WITH DINNER, PM MEDS GIVEN ORDERED, ALL NEEDS ATTENDED.
--- NOTE | 2021-07-06 19:47 | NUR ---
KILN BURNER OPENING NOTES RECEIVED PT IN BED, AWAKE. AOx4, ABLE TO MAKE NEEDS KNOWN. ON RA AND TOLERATING WELL. NO SOB NOTED. NO S/SX OF RESPIRATORY DISTRESS NOTED. TELEL MONITOR DETECTS SINUS RHYTHM WITH RATE OF 69. IV ACCESS IN L HAND AND R WRIST #20. IV IS INTACT, PATENT, AND FLUSHING WELL.SAFETY PRECAUTIONS IN PLACE: BED IN LOWEST, LOCKED POSITION, SIDERAILS UPx2, AND BRAKES ON. TABLE AND CALL LIGHT WITHIN REACH. WILL CONTINUE TO MONITOR
[2021-07-06 20:00] VITALS: BP 147/70
[2021-07-07] VITALS: BP 141/60
[2021-07-07 04:00] VITALS: BP 120/70
--- NOTE | 2021-07-07 05:38 | NUR ---
NON-ADMIN STOCK MEDICATION. NON-ADMIN STOCK MEDICATION TO REMOVED RED BOX.
--- NOTE | 2021-07-07 06:49 | NUR ---
BOARD OF DIRECTORS CLOSING NOTES PT IN BED, AWAKE. AOx4, ABLE TO MAKE NEEDS KNOWN. ON RA AND TOLERATING WELL. NO SOB NOTED. NO S/SX OF RESPIRATORY DISTRESS NOTED. TELE MONITOR DETECTS SINUS RHYTHM WITH RATE OF 69. IV ACCESS IN L FA #20 AND R WRIST #22. IV IS INTACT, PATENT, AND FLUSHING WELL. ALL NEEDS MET. PT KEPT CLEAN AND DRY. SAFETY PRECAUTIONS IN PLACE: BED IN LOWEST, LOCKED POSITION, SIDERAILS UPx2, AND BRAKES ON. TABLE AND CALL LIGHT WITHIN REACH. WILL ENDORSE TO ONCOMING SHIFT FOR GERHARD.
--- NOTE | 2021-07-07 07:33 | NUR ---
MAKE UP OPERATOR OPENING NOTES RECEIVED Pt IN BED, ASLEEP. EASILY AROUSABLE AND IS AOx4. Pt IS ON RA AND TOLERATING WELL. NO SOB NOTED. NO S/SX OF RESPIRATORY DISTRESS NOTED. IV ACCESS IN L HAND AND R WRIST AND BOTH #20g. IV IS INTACT, PATENT, AND FLUSHING WELL. SAFETY PRECAUTIONS IN PLACE: BED IS LOCKED AND IN LOWEST POSITION, SIDE RAILS UPx2, AND BRAKES ON. TABLE AND CALL LIGHT WITHIN REACH. WILL CONTINUE TO MONITOR THROUGHOUT THE SHIFT
[2021-07-07 08:00] VITALS: BP 147/66
[2021-07-07] MEDS: SERTRALINE HCL 50 MG TABLET PO SCH (09:45)
[2021-07-07] MEDS: LEVOTHYROXINE SODIUM 25 MCG TABLET PO SCH (09:45)
[2021-07-07] MEDS: GABAPENTIN 300 MG CAPSULE PO SCH ×2 (09:45→12:48)
[2021-07-07] MEDS: NIFEdipine XL (30MG) 30 MG TAB PO SCH (09:46)
[2021-07-07] MEDS: RIVAROXABAN 10 MG TABLET PO SCH (09:49)
[2021-07-07] MEDS: CLOTRIMAZOLE 1% 15 GM TUBE TP SCH (10:03)
[2021-07-07 12:00] VITALS: BP 131/84
[2021-07-07] MEDS ORDERED: CLOT15CR35 TP (13:15)
[2021-07-07] MEDS ORDERED: AMIO200T5 PO (13:15)
[2021-07-07] MEDS ORDERED: AMIO400T5 PO (13:15)
[2021-07-07] MEDS ORDERED: DILT120C11 PO (13:16)
--- NOTE | 2021-07-07 15:56 | NUR ---
MASTER AT ARMS NOTES: DISCHARGE Pt WAS DISCHARGED. SHE WAS A/OX4. BREATHING WAS EVEN AND UNLABORED ON ROOM AIR. Pt WAS PICKE UP BY AMBULANCE. ALL NEEDS WERE MET. BOTH IV ACCESS WERE REMOVED. SAFETY MEASURE WERE KEPT IN PLACE. Pt LEFT VIA AMBULANCE.
== END 2021-07-07 14:50 | DRG 299 ==
LOC: ER 12:25 → MEDSG1 22:18 → MED 06-30 17:04 → TELE 07-04 19:05
PROVIDERS: ADMIT Nurse Practitioner Acute Care; ATTEND Nurse Practitioner Acute Care
PROC: B41GYZZ Fluoroscopy of Left Lower Extremity Arteries using Other Contrast (ICD-10-PCS; principal; 2021-07-03)
DX: I73.9 Peripheral vascular disease, unspecified (principal); N17.0 Acute kidney failure with tubular necrosis; D68.59 Other primary thrombophilia; M84.454A Pathological fracture, pelvis, initial encounter for fracture; I87.311 Chronic venous hypertension (idiopathic) with ulcer of right lower extremity; M79.7 Fibromyalgia; F32.A Depression, unspecified; Z74.09 Other reduced mobility; L89.619 Pressure ulcer of right heel, unspecified stage; K57.30 Diverticulosis of large intestine without perforation or abscess without bleeding; Z20.822 Contact with and (suspected) exposure to COVID-19; I48.91 Unspecified atrial fibrillation; Z88.1 Allergy status to other antibiotic agents; Z79.01 Long term (current) use of anticoagulants; Z79.899 Other long term (current) drug therapy; E03.9 Hypothyroidism, unspecified; Z87.81 Personal history of (healed) traumatic fracture; L89.899 Pressure ulcer of other site, unspecified stage; N20.0 Calculus of kidney; Z96.649 Presence of unspecified artificial hip joint; Z87.440 Personal history of urinary (tract) infections; B96.89 Other specified bacterial agents as the cause of diseases classified elsewhere
CPT/HCPCS: 36246; 36415; 71045-TC; 73620-TC; 75625; 75710-TC; 80048-TC; 80076-TC; 80202-TC; 83605-TC; 83735-TC; 84100-TC; 84439-TC; 84443-TC; 84484-TC; 85025-TC; 85652-TC; 85730-TC; 86140-TC; 87040-TC; 87081-TC; A6403; C1887; C1894; C9803; G0378; G0500; J0282; J0692; J1644; J2250; J3010; J3370; J3490; J7030; J7050; J7060; Q9967; U0003